=== PATIENT | male | born 1990 | race Two or more races ===

== ENCOUNTER 2019-10-07 02:04 | Emergency (ER) | payer OTHER ==
[~2019-10-07] VITALS: Ht 165.1 cm; Wt 52.2 kg
[2019-10-07] MEDS ORDERED: KETOROLAC TROMETHAMINE 15 MG INJ IVP ONE (02:45)
[2019-10-07] MEDS ORDERED: IV NORMAL SALINE 1000 ML BAG IV ONE (02:45)
[2019-10-07] MEDS ORDERED: KETOROLAC TROMETHAMINE 15 MG INJ ONE (02:50)
[2019-10-07 03:04] LABS: BASOPHILS % (AUTO) 0.5 % (0.0-2.0); HEMATOCRIT 45.3 % (36.7-47.1); HEMOGLOBIN 14.9 g/dL (12.5-16.3); LYMPHOCYTES # (AUTO) 1.6 K/uL (20.0-40.0); LYMPHOCYTES % (AUTO) 18.7 % (20.5-51.5); MEAN CORPUSCULAR HGB CONC 33 g/dL (32.5-36.3); MEAN CORPUSCULAR VOLUME 88.3 fL (73.0-96.2); MONOCYTES % (AUTO) 11.4 % (0.0-11.0); NEUTROPHILS # (AUTO) 5.9 K/uL (1.8-8.9); NEUTROPHILS % (AUTO) 69.4 % (38.5-71.5); PLATELET COUNT (AUTO) 212 K/uL (152-348); RED BLOOD CELL COUNT(AUTO) 5.13 MIL/uL (4.06-5.63); WHITE BLOOD COUNT (AUTO) 8.6 K/uL (3.6-10.2)
[2019-10-07 03:11] LABS: CREATININE 1.3 mg/dL (0.6-1.3); POTASSIUM 4.5 mmol/L (3.5-5.1)
[2019-10-07 03:17] LABS: BILIRUBIN,DIRECT 0.2 mg/dL (0.0-0.2); BILIRUBIN,TOTAL 0.7 mg/dL (0.2-1.0); TOTAL PROTEIN, SERUM 8.1 g/dL (6.4-8.2)
[2019-10-07 03:22] LABS: *MONOTEST NEGATIVE (NEGATIVE)
[2019-10-07] MEDS ORDERED: IV NORMAL SALINE 500 ML IV ONE (04:45)
--- NOTE | 2019-10-07 05:55 | NUR ---
Patient discharged to home in stable conditon. Written and verbal after care instructions given. Patient verbalizes understanding of instructions. Ambulated from ER with stable gait. Will be driven home by .
[2019-10-07 05:56] VITALS: BP 111/72
== END 2019-10-07 05:56 | disposition home or self-care (01) ==
LOC: ER 02:19
DX: B34.9 Viral infection, unspecified (principal); F15.10 Other stimulant abuse, uncomplicated; F17.200 Nicotine dependence, unspecified, uncomplicated
CPT/HCPCS: 36415; 80048; 80076; 83605; 83690; 85025; 86308; 86403; 87070; 87400; 96361; 96374; 99283; J1885; A4663; J7030; J7040

== ENCOUNTER 2019-11-17 16:33 | Emergency (ER) | payer OTHER ==
[~2019-11-17] VITALS: Ht 165.1 cm; Wt 49.0 kg
[2019-11-17] MEDS ORDERED: TDAP DIPH,PERTUSS,TET VAC/PF 0.5 ML DISP.SYRIN IM ONE ×2 (17:00→17:03)
[2019-11-17] MEDS ORDERED: LIDOCAINE HCL 2% 20 ML VIAL TP ONE (17:00)
[2019-11-17] MEDS ORDERED: KETOROLAC TROMETHAMINE 60 MG INJ IM ONE ×2 (17:00→17:02)
--- NOTE | 2019-11-17 17:17 | NUR ---
ERMD at bedside for I&D
--- NOTE | 2019-11-17 17:37 | NUR ---
Patient discharged to home in stable conditon. Written and verbal after care instructions given. Patient verbalizes understanding of instructions. Patient ambulated with stable gait.
[2019-11-17 17:38] VITALS: BP 115/79
== END 2019-11-17 17:39 | disposition home or self-care (01) ==
LOC: ER 16:36
DX: L02.31 Cutaneous abscess of buttock (principal); L03.317 Cellulitis of buttock
CPT/HCPCS: 10060; 76536; 90471; 90715; 96372; 99284; J1885; A4663

== ENCOUNTER 2020-03-04 19:46 | Emergency (ER) | payer OTHER ==
[~2020-03-04] VITALS: Ht 165.1 cm; Wt 53.5 kg
--- NOTE | 2020-03-04 20:15 | NUR ---
Dr. Gee at bedside for MSE.
[2020-03-04] MEDS ORDERED: AZITHROMYCIN 250 MG TABLET PO ONE (21:15)
[2020-03-04] MEDS ORDERED: CEFTRIAXONE 1 G VIAL IM ONE (21:15)
[2020-03-04] MEDS ORDERED: CEFTRIAXONE 1 G VIAL ONE (21:27)
[2020-03-04] MEDS ORDERED: LIDOCAINE HCL 1% 20 ML VIAL ONE (21:28)
[2020-03-04] MEDS ORDERED: AZITHROMYCIN 250 MG TABLET ONE (21:29)
--- NOTE | 2020-03-04 21:46 | NUR ---
Patient discharged to home in stable condition. Written and verbal after care instructions given. Patient verbalizes understanding of instructions. Stressed follow up or return to ER for worsening s/s. Patient ambulated out of ER with steady gait, no acute signs of distress, VSS, all belongings taken.
[2020-03-04 21:47] VITALS: BP 130/80
[2020-03-08 14:08] LABS: *GC NAA Negative (Negative); *TRIC.VAG. NAA Negative (Negative)
== END 2020-03-04 21:48 | disposition home or self-care (01) ==
LOC: ER 19:51
DX: N48.5 Ulcer of penis (principal); F17.210 Nicotine dependence, cigarettes, uncomplicated
CPT/HCPCS: 86592; 87491; 96372; 99283; 99406; J0696; J3490; A4663; Q0144

== ENCOUNTER 2020-05-03 14:58 | Emergency (ER) | payer OTHER ==
[~2020-05-03] VITALS: Ht 165.1 cm; Wt 53.5 kg
--- NOTE | 2020-05-03 15:07 | NUR ---
Dr. Bridges at bedside for MSE
[2020-05-03] MEDS ORDERED: AZITHROMYCIN 250 MG TABLET PO ONE (15:15)
[2020-05-03] MEDS ORDERED: CEFTRIAXONE 1 G VIAL IM ONE (15:15)
[2020-05-03] MEDS ORDERED: PENICILLIN G BENZATHINE 2.4 MMU/4 ML DISP.SYRIN IM ONE ×2 (15:15→15:26)
--- NOTE | 2020-05-03 15:15 | NUR ---
Chaperoned Dr. Bridges at bedside
[2020-05-03] MEDS ORDERED: AZITHROMYCIN 250 MG TABLET ONE (15:25)
[2020-05-03] MEDS ORDERED: CEFTRIAXONE 1 G VIAL ONE (15:26)
[2020-05-03] MEDS ORDERED: LIDOCAINE HCL 1% 20 ML VIAL ONE (15:27)
--- NOTE | 2020-05-03 15:52 | NUR ---
Patient discharged to home in stable condition. Written and verbal after care instructions given. Patient verbalizes understanding of instructions. Stressed follow up or return to ER for worsening s/s. Patient ambulated with steady gait. NAD noted
[2020-05-03 15:57] VITALS: BP 131/86
== END 2020-05-03 15:52 | disposition home or self-care (01) ==
LOC: ER 14:58
DX: A53.9 Syphilis, unspecified (principal); N48.1 Balanitis; Z86.19 Personal history of other infectious and parasitic diseases
CPT/HCPCS: 96372 ×2; 99284; J0696; J3490; A4663; Q0144

== ENCOUNTER 2020-08-19 12:28 | Emergency (ER) | payer OTHER ==
[~2020-08-19] VITALS: Ht 165.1 cm; Wt 49.0 kg
--- NOTE | 2020-08-19 12:51 | NUR ---
Urine cup was provided. Patient said "I'm hungry." Lunch tray was ordered from dietary.
[2020-08-19] MEDS ORDERED: SULFAMETH/TRIMETH 800/160 MG TABLET PO ONE (13:00)
[2020-08-19] MEDS ORDERED: TDAP DIPH,PERTUSS,TET VAC/PF 0.5 ML DISP.SYRIN IM ONE ×2 (13:00→13:08)
[2020-08-19] MEDS ORDERED: CEphaleXIN 500 MG CAPSULE PO ONE (13:00)
[2020-08-19] MEDS ORDERED: LIDOCAINE 2%-EPI 1:100,000 20 ML VIAL TP ONE (13:00)
[2020-08-19] MEDS ORDERED: CEphaleXIN 500 MG CAPSULE ONE (13:07)
--- NOTE | 2020-08-19 13:07 | NUR ---
Patient refused blood draw & urine test, is aware.
[2020-08-19] MEDS ORDERED: SULFAMETH/TRIMETH 800/160 MG TABLET ONE (13:08)
[2020-08-19 14:30] LABS: BASOPHILS % (AUTO) 0.3 % (0.0-2.0); EOSINOPHILS # (AUTO) 0.3 K/uL (0.0-0.7); EOSINOPHILS % (AUTO) 3.8 % (0.0-7.0); HEMOGLOBIN 13.8 g/dL (12.5-16.3); LYMPHOCYTES # (AUTO) 2.4 K/uL (20.0-40.0); LYMPHOCYTES % (AUTO) 27.8 % (20.5-51.5); MEAN CORPUSCULAR HEMOGLOBIN 28.7 uug (23.8-33.4); MEAN CORPUSCULAR HGB CONC 33 g/dL (32.5-36.3); MEAN CORPUSCULAR VOLUME 87.5 fL (73.0-96.2); MONOCYTES # (AUTO) 0.6 K/uL (2.0-10.0); MONOCYTES % (AUTO) 7.3 % (0.0-11.0); NEUTROPHILS # (AUTO) 5.2 K/uL (1.8-8.9); NEUTROPHILS % (AUTO) 60.8 % (38.5-71.5); PLATELET COUNT (AUTO) 284 K/uL (152-348); WHITE BLOOD COUNT (AUTO) 8.5 K/uL (3.6-10.2)
[2020-08-19 14:32] LABS: CARBON DIOXIDE 29 mmol/L (21-32); CHLORIDE 104 mmol/L (98-107); CREATININE 0.7 mg/dL (0.6-1.3); GLUCOSE 86 mg/dL (74-106); POTASSIUM 3.5 mmol/L (3.5-5.1); UREA NITROGEN, BLOOD 7 mg/dL (7-18)
[2020-08-19 14:52] LABS: ALANINE AMINOTRANSFERASE 47 U/L (16-63); ALKALINE PHOSPHATASE 111 U/L (50-136); ASPARTATE AMINOTRANSFERASE 20 U/L (15-37); BILIRUBIN,DIRECT 0.1 mg/dL (0.0-0.2); BILIRUBIN,TOTAL 0.1 mg/dL (0.2-1.0); TOTAL PROTEIN, SERUM 7.4 g/dL (6.4-8.2)
[2020-08-19 14:54] LABS: ACETAMINOPHEN < 2.0 ug/mL (10-30); ETHANOL < 3 MG/DL (0-0)
--- NOTE | 2020-08-19 15:30 | NUR ---
[facility]sting md at bed side, pt very aggressive, yelling, cursing, non-compliant with mask placement, asking for boy friend to come inside, after being explained multiple times about strict family visits during covid pandemic.
[2020-08-19 15:55] LABS: *BILIRUBIN,URIN NEGATIVE (NEGATIVE); *BLOOD, URINE NEGATIVE (NEGATIVE); *CLARITY,URINE CLEAR (CLEAR); *COLOR,URINE YELLOW (YELLOW); *KETONES,URINE NEGATIVE (NEGATIVE); *UROBILINOGEN,URINE 0.2 E.U./dl (NORMAL); LEUKOCYTE ESTERASE ,URINE NEGATIVE (NEGATIVE); NITRITE, URINE NEGATIVE (NEGATIVE); PH,URINE 6.5 (5.0-8.0); UGLUCOSE NEGATIVE (NEGATIVE)
[2020-08-19] MEDS ORDERED: LIDOCAINE 2%-EPI 1:100,000 20 ML VIAL ONE (15:58)
--- NOTE | 2020-08-19 16:00 | NUR ---
pt refuses to be further treated by md, and walks out.
[2020-08-19 16:06] LABS: *AMPHETAMINE, URINE POSITIVE (NEGATIVE); *CANNABINOID, URINE POSITIVE (NEGATIVE); *COCCAINE, URINE NEGATIVE (NEGATIVE); *OPIATE, URINE NEGATIVE (NEGATIVE); *PHENCYCLIDINE SCREEN,URINE NEGATIVE (NEGATIVE)
[2020-08-21 09:06] LABS: *GC NAA Negative (Negative); *TRIC.VAG. NAA Negative (Negative)
== END 2020-08-19 16:00 | disposition left against medical advice (07) ==
LOC: ER 12:28
DX: M00.9 Pyogenic arthritis, unspecified (principal); L02.415 Cutaneous abscess of right lower limb; R79.82 Elevated C-reactive protein (CRP); F12.20 Cannabis dependence, uncomplicated; F15.20 Other stimulant dependence, uncomplicated; F17.200 Nicotine dependence, unspecified, uncomplicated; R70.0 Elevated erythrocyte sedimentation rate; Z86.19 Personal history of other infectious and parasitic diseases
CPT/HCPCS: 36415; 85025; 85651; 85730; 86140; 87040; 87491; 90715; A4217; G0480

== ENCOUNTER 2020-12-14 22:02 | Emergency (ER) | payer SELFPAY ==
--- NOTE | 2020-12-14 22:35 | NUR ---
Patient was called to be triaged but stated " I change my mind. I don't want to be seen anymore." Patient was not seen by ERMD or triaged.
== END 2020-12-14 22:47 | disposition left against medical advice (07) ==
LOC: ER 22:04
DX: Z53.21 Procedure and treatment not carried out due to patient leaving prior to being seen by health care provider (principal)

== ENCOUNTER 2021-03-09 21:22 | Emergency (ER) | payer OTHER ==
[~2021-03-09] VITALS: Ht 165.1 cm; Wt 47.6 kg
[2021-03-09] MEDS ORDERED: SULFAMETH/TRIMETH 800/160 MG TABLET PO ONE (22:15)
[2021-03-09] MEDS ORDERED: CEFTRIAXONE 500 MG VIAL IM ONE (22:15)
[2021-03-09] MEDS ORDERED: PENICILLIN G BENZATHINE 2.4 MMU/4 ML DISP.SYRIN IM ONE ×2 (22:15→22:40)
[2021-03-09] MEDS ORDERED: DOXYCYCLINE HYCLATE 100 MG TABLET PO ONE (22:15)
[2021-03-09] MEDS ORDERED: DOXY100C2 PO (22:18)
[2021-03-09] MEDS ORDERED: SULF1TAB48 PO (22:18)
[2021-03-09] MEDS ORDERED: DOXYCYCLINE HYCLATE 100 MG TABLET ONE (22:39)
[2021-03-09] MEDS ORDERED: CEFTRIAXONE 500 MG VIAL ONE (22:39)
[2021-03-09] MEDS ORDERED: SULFAMETH/TRIMETH 800/160 MG TABLET ONE (22:39)
[2021-03-09] MEDS ORDERED: LIDOCAINE HCL 1% 20 ML VIAL ONE (22:39)
[2021-03-09 23:05] VITALS: BP 111/54
== END 2021-03-09 23:05 | disposition home or self-care (01) ==
LOC: ER 21:22
DX: N48.5 Ulcer of penis (principal); L02.416 Cutaneous abscess of left lower limb; L03.116 Cellulitis of left lower limb; F15.10 Other stimulant abuse, uncomplicated; Z20.2 Contact with and (suspected) exposure to infections with a predominantly sexual mode of transmission; F17.210 Nicotine dependence, cigarettes, uncomplicated
CPT/HCPCS: 36415; 86592; 96372 ×2; 99284; 99406; J0696; J3490; A4663

== ENCOUNTER 2021-03-11 20:05 | Emergency (ER) | payer OTHER ==
[~2021-03-11] VITALS: Ht 165.1 cm; Wt 47.6 kg
[~2021-03-11 20:05] MED LIST: DOXY100C2 PO; SULF1TAB48 PO
--- NOTE | 2021-03-11 20:13 | NUR ---
Dr. Barrett at bedside for MSE.
[2021-03-11] MEDS ORDERED: HYDROCODONE/APAP 10-325 MG TABLET PO ONE (20:30)
--- NOTE | 2021-03-11 20:37 | NUR ---
Per Dr. Barrett pt stable for discharge. DC instructions given and reviewed with pt. Verbalized understanding. Left ER in stable condition.
[2021-03-11] MEDS ORDERED: HYDROCODONE/APAP 10-325 MG TABLET ONE (20:39)
== END 2021-03-11 20:38 | disposition home or self-care (01) ==
LOC: ER 20:07
DX: L02.416 Cutaneous abscess of left lower limb (principal); F17.210 Nicotine dependence, cigarettes, uncomplicated
CPT/HCPCS: A4663

== ENCOUNTER 2021-11-25 00:31 | Emergency (ER) | payer OTHER ==
[~2021-11-25] VITALS: Ht 165.1 cm; Wt 49.9 kg
[~2021-11-25 00:31] MED LIST changes: -DOXY100C2 PO; +DOXY100C5 PO
--- NOTE | 2021-11-25 01:25 | NUR ---
Dr. Gee at bedside for MSE.
[2021-11-25] MEDS ORDERED: PENICILLIN G BENZATHINE 2.4 MMU/4 ML DISP.SYRIN IM ONE ×2 (03:15→03:33)
--- NOTE | 2021-11-25 03:54 | NUR ---
Patient discharged to home in stable condition. Written and verbal after care instructions given. Patient verbalizes understanding of instructions. Stressed follow up or return to ER for worsening s/s. pt ambulated with steady gait. denies pain. no sob. no chest pain.
[2021-11-25 03:58] VITALS: BP 139/75
[2021-11-28 02:06] LABS: *TRIC.VAG. NAA Negative (Negative)
== END 2021-11-25 04:08 | disposition home or self-care (01) ==
LOC: ER 00:34
DX: N48.5 Ulcer of penis (principal); F17.210 Nicotine dependence, cigarettes, uncomplicated
CPT/HCPCS: 36415; 86592; 87491; 96372; 99283; 99406; J0561; A4663

== ENCOUNTER 2022-05-22 14:45 | Emergency (ER) | payer OTHER ==
[~2022-05-22] VITALS: Ht 165.1 cm; Wt 52.2 kg
[2022-05-22 15:52] VITALS: BP 113/69
--- NOTE | 2022-05-22 15:52 | NUR ---
Patient discharged to home in stable condition. Written and verbal after care instructions given. Patient verbalizes understanding of instructions. Stressed follow up or return to ER for worsening s/s.
== END 2022-05-22 15:52 | disposition home or self-care (01) ==
LOC: ER 14:45
DX: H53.8 Other visual disturbances (principal); F17.210 Nicotine dependence, cigarettes, uncomplicated; G47.419 Narcolepsy without cataplexy
CPT/HCPCS: A4663